=== PATIENT | male | born 1975 | race Caucasian/White ===

== ENCOUNTER 2016-12-23 20:01 | Emergency (ER) | payer SELFPAY ==
[2016-12-23 20:06] VITALS: BP 139/81; PULSE 74; TEMP 98; BMI 42.5
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
== END 2016-12-23 22:28 | disposition home or self-care (01) ==
LOC: JERFT 20:01
DX: H16.132 Photokeratitis, left eye (principal); W86.8XXA Exposure to other electric current, initial encounter; Y93.H3 Activity, building and construction; Y92.69 Other specified industrial and construction area as the place of occurrence of the external cause; Y99.0 Civilian activity done for income or pay
CPT/HCPCS: 99281-25

== ENCOUNTER 2020-10-24 18:08 | Emergency (ER) | payer OTHER ==
[2020-10-24 18:16] VITALS: BMI 41.1
[2020-10-24] MEDS ORDERED: LACTATED RINGERS SOLUTION 1000 ML INFUS.BAG IV ONE ×2 (19:02→21:38)
[2020-10-24 19:34] LABS: VENOUS BASE EXCESS -1.7 mmol/L (-2-2); VENOUS PCO2 34.4 mmHg (38-52); VENOUS PH 7.422 (7.310-7.410)
[2020-10-24 19:52] LABS: BASO % 0.3 % (0-2.0); EOS % 1.2 % (0-4.5); HEMATOCRIT 41.9 % (35.4-49); HEMOGLOBIN 14.6 GM/dL (11.7-16.9); LYMPH % 28.6 % (8-40); MCH 29.9 pg (25.7-33.7); MCHC 34.9 g/dl (32.0-35.9); MEAN CELL VOLUME 85.5 fl (80-96); MEAN PLT VOLUME 10.3 fl (7.5-11.1); MONO % 6.2 % (3.8-10.2); NEUT % 63.7 % (42.8-82.8); PLATELET COUNT 199 K/MM3 (134-434); RDW 13.6 % (11.9-15.9); WHITE BLOOD COUNT 6.7 K/mm3 (4.0-10.0)
[2020-10-24 19:58] LABS: INR 1.03 (0.83-1.09); PROTHROMBIN TIME (PATIENT) 12.4 SEC (9.7-13.0)
[2020-10-24 20:03] LABS: CHLORIDE 101 mmol/L (98-107); SODIUM 133 mmol/L (136-145)
[2020-10-24 20:05] LABS: CALCIUM 8.8 mg/dL (8.5-10.1)
[2020-10-24 20:06] LABS: ALBUMIN 4.1 g/dl (3.4-5.0); ANION GAP 9 MMOL/L (8-16); BLOOD UREA NITROGEN 21.6 mg/dL (7-18); CO2 23 mmol/L (21-32)
[2020-10-24 20:08] LABS: SGPT/ALT 50 U/L (13-61)
[2020-10-24 20:09] LABS: CREATININE 0.8 mg/dL (0.55-1.3); SGOT/AST 27 U/L (15-37)
[2020-10-24 20:10] LABS: BILIRUBIN,TOTAL 0.9 mg/dL (0.2-1); TOT PROT 7.4 g/dl (6.4-8.2)
[2020-10-24 20:11] LABS: ALK PHOS 169 U/L (45-117)
[2020-10-24 20:20] LABS: GLUCOSE,RANDOM 542 mg/dL (74-106)
[2020-10-24 20:26] LABS: PH,URINE 5.5 (5.0-8.0); URINE APPEARANCE CLEAR; URINE BILIRUBIN NEGATIVE (NEGATIVE); URINE COLOR YELLOW; URINE GLUCOSE (UA) 3+ (NEGATIVE); URINE KETONE 1+ (NEGATIVE); URINE LEUK ESTERASE NEGATIVE (NEGATIVE); URINE NITRITE NEGATIVE (NEGATIVE); URINE PROTEIN NEGATIVE (NEGATIVE); URINE UROBILINOGEN 0.2 mg/dL (0.2-1.0)
[2020-10-24] MEDS ORDERED: INSULIN REGULAR HUMAN 100 UNITS/ML *VIAL SQ ONE (21:37)
[2020-10-24] MEDS ORDERED: INSULIN (NOVOLOG) ASPART 100 UNITS/ML 10ML VIAL SQ ONE (21:40)
[2020-10-24] MEDS ORDERED: metFORMIN HCL 500 MG TABLET (FP) PO ONE (22:34)
[2020-10-24] MEDS ORDERED: SODIUM CHLORIDE 0.9% 500 ML INFUS.BAG IV ONE (23:10)
[2020-10-24 23:26] VITALS: TEMP 97.9
[2020-10-24] MEDS ORDERED: metFORMIN HCL 500 MG TABLET (FP) ONE (23:28)
[2020-10-25 02:53] VITALS: BP 125/83; PULSE 61
== END 2020-10-25 02:53 | disposition home or self-care (01) ==
LOC: JER 18:08
DX: R73.9 Hyperglycemia, unspecified (principal)
CPT/HCPCS: 36415; 80053; 81003; 82010; 82803; 82962; 83605; 83735; 84484; 85025; 85610; 85730; 87077; 87086; 93005; 93010; 99284-25

== ENCOUNTER 2021-11-01 10:18 | Emergency (ER) | payer OTHER ==
[2021-11-01 10:43] VITALS: BP 131/70; PULSE 60; TEMP 98.2; BMI 37.8
[2021-11-01] MEDS ORDERED: KETOROLAC TROMETHAMINE 30 MG/1 ML VIAL IM ONE (11:50)
[2021-11-01] MEDS ORDERED: METHOCARBAMOL 500 MG TABLET PO ONE (11:50)
[2021-11-01] MEDS ORDERED: LIDOCAINE 5% TOPICAL PATCH TP ONE (11:50)
[2021-11-01] MEDS ORDERED: METHOCARBAMOL 500 MG TABLET ONE (12:07)
[2021-11-01] MEDS ORDERED: KETOROLAC TROMETHAMINE 30 MG/1 ML VIAL ONE (12:07)
[2021-11-01] MEDS ORDERED: LIDOCAINE 5% TOPICAL PATCH ONE (12:07)
[2021-11-01] MEDS ORDERED: LIDOCAINE PATCH REMOVAL MC ONE (22:00)
== END 2021-11-01 12:53 | disposition home or self-care (01) ==
LOC: JERFT 10:18
PROC: 3E023GC Introduction of Other Therapeutic Substance into Muscle, Percutaneous Approach (ICD-10-PCS; principal; 2021-11-01)
DX: M54.50 Low back pain, unspecified (principal)
CPT/HCPCS: 96372; 99284-25